=== PATIENT | male | born 1990 | race African-American/Black ===

== ENCOUNTER 2023-07-20 12:04 | Emergency (ER) | payer OTHER, SELFPAY ==
--- NOTE | ~2023-07-20 | XR_ITS ---
EXAMINATION: XR HIP, RIGHT CLINICAL INFORMATION: Acute on chronic pain COMPARISON: None available. TECHNIQUE: Two views of the right hip. AP pelvis one view FINDINGS: AP pelvis: There is maintained bilateral hip and SI joints space. No visible pelvic bone fracture. There are scattered phleboliths in left pelvis. AP and frog-leg views right hip reveal no visible fracture or bony abnormality. The soft tissues are normal. XR/XR hip RT w PEL1V IMPRESSION: Unremarkable AP pelvis and right hip exam.
[2023-07-20 12:37] VITALS: BP 105/56; PULSE 63; RESP 16; TEMP 37.3; O2SAT 99; BMI 23.3
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
[2023-07-20] MEDS: Ketorolac Tromethamine 30 MG/ML VIAL IM (14:20)
[2023-07-20] MEDS: Lidocaine 4 % Patch ADH..PATCH 1 PATCH TRANSDERMA (14:20)
--- NOTE | 2023-07-20 14:24 | PC.NURSE ---
pt medicated per provider order. pt awaiting xray results at this time.
== END 2023-07-20 15:02 | disposition home or self-care (01) ==
PROVIDERS: Emergency Provider Emergency Medicine
DX: M25.551 Pain in right hip (principal); G89.29 Other chronic pain
CPT/HCPCS: 73502; 96372; 99284; J1885